=== PATIENT | female | born 1955 | race Caucasian/White ===

== ENCOUNTER 2017-04-27 13:54 | Outpatient (CLI) | payer OTHER ==
[2017-04-27 14:55] LABS: BASOPHILS # (AUTO) 0.1 K/uL (0.0-0.2); EOSINOPHILS # (AUTO) 0.2 K/uL (0.0-0.4); EOSINOPHILS % (AUTO) 2.7 % (0.0-4.0); HEMATOCRIT 45.8 % (36-48); HEMOGLOBIN 14.8 g/dL (12.0-16.0); LYMPHOCYTES # (AUTO) 1.5 K/uL (1.0-5.5); LYMPHOCYTES % (AUTO) 21.1 % (20.5-51.5); MEAN CORPUSCULAR HEMOGLOBIN 30 pg (27-31); MEAN CORPUSCULAR HGB CONC 32 % (32-36); MEAN CORPUSCULAR VOLUME 91 fL (79.0-98.0); MONOCYTES # (AUTO) 0.7 K/uL (0.0-1.0); NEUTROPHILS # (AUTO) 4.8 K/uL (1.8-7.7); NEUTROPHILS % (AUTO) 66.2 % (40.0-70.0); PLATELET COUNT (AUTO) 247 K/uL (130-430); RED BLOOD CELL COUNT(AUTO) 5.01 MIL/uL (4.2-6.2); RED CELL DISTRIBUTION WIDTH 13.3 % (9.0-15.0); WHITE BLOOD COUNT (AUTO) 7.3 K/uL (4.8-10.8)
[2017-04-27 14:58] LABS: CALCIUM 9.5 mg/dL (8.4-11.0); CREATININE 0.68 mg/dL (0.55-1.30)
[2017-04-27 15:06] LABS: INR 0.9 (0.8-1.2); PROTHROMBIN TIME 9.4 SECS (9.5-12.5)
== END 2017-04-27 19:48 | disposition home or self-care (01) ==
LOC: SLB 13:54
PROVIDERS: ATTEND Surgery Vascular Surgery
DX: I82.401 Acute embolism and thrombosis of unspecified deep veins of right lower extremity (principal); D68.51 Activated protein C resistance
CPT/HCPCS: 36415; 80048; 85025; 85610; 85730; C1751; C1769

== ENCOUNTER → 2017-04-30 | Outpatient (CLI) | payer OTHER ==
[2017-04-30 15:35] LABS: INR 1.1 (0.8-1.2); PROTHROMBIN TIME 12.2 SECS (9.5-12.5)
== END | disposition home or self-care (01) ==
LOC: SLB 14:27
PROVIDERS: ATTEND Surgery Vascular Surgery
DX: I82.401 Acute embolism and thrombosis of unspecified deep veins of right lower extremity (principal); D68.51 Activated protein C resistance
CPT/HCPCS: 36415; 85610-TC; 85730-TC

== ENCOUNTER 2017-05-03 08:24 | Outpatient (CLI) | payer OTHER ==
[2017-05-03 08:54] LABS: INR 2.2 (0.8-1.2); PROTHROMBIN TIME 24.8 SECS (9.5-12.5)
== END 2017-05-03 20:32 | disposition home or self-care (01) ==
LOC: SLB 08:24
PROVIDERS: ATTEND Surgery Vascular Surgery
DX: I82.401 Acute embolism and thrombosis of unspecified deep veins of right lower extremity (principal); D68.51 Activated protein C resistance
CPT/HCPCS: 36415; 85610-TC; 85730-TC

== ENCOUNTER 2022-12-11 10:59 | Emergency (ER) | payer OTHER, MEDICARE ==
[~2022-12-11] VITALS: Ht 162.6 cm; Wt 62.6 kg
[2022-12-11 11:29] VITALS: BP_SYST 141
[2022-12-11 14:48] LABS: BILIRUBIN,URINE NEGATIVE (NEGATIVE); BLOOD, URINE 2+ (NEGATIVE); COLOR,URINE YELLOW (YELLOW); GLUCOSE,URINE NEGATIVE (NEGATIVE); KETONES,URINE 3+ (NEGATIVE); LEUKOCYTE ESTERASE ,URINE 3+ (NEGATIVE); NITRITE, URINE NEGATIVE (NEGATIVE); PROTEIN URINE TRACE (NEGATIVE); UROBILINOGEN,URINE 0.2 (0.2-1.0)
[2022-12-11 15:05] LABS: CLARITY/URINE HAZY (CLEAR)
--- NOTE | 2022-12-11 15:09 | NUR ---
PT BIB FROM HOME C/O RT FLANK SHARP STABBING PAIN X5 DAYS THAT HAS PROGRESSED TO 10 OUT OF 10, DOES NOT RADIATE. PT RECOVERING FROM BLADDER INFECTION 12/01/22. PT STATES DIFFICULT TO URINATE DUE TO THE PAIN. PT TEMP 98.6 TEMPORAL. PT HISTORY OF DIABETES CONTROLLED WITH METFORMIN, FACTOR 5 LEIDON, ALPHA 1 ANTITRIPSE DEFFICIENCY. PT VSS WITH RAILS UP BEDSIDE RESTING COMFORTABLY
--- NOTE | 2022-12-11 15:10 | NUR ---
MD DR LAND AT BEDSIDE
[2022-12-11 15:12] LABS: BASOPHILS % (AUTO) 0.3 % (0.0-2.0); EOSINOPHILS % (AUTO) 0.1 % (0.0-4.0); HEMATOCRIT 40.1 % (36-48); HEMOGLOBIN 13.6 g/dL (12.0-16.0); LYMPHOCYTES # (AUTO) 1.1 K/uL (1.0-5.5); LYMPHOCYTES % (AUTO) 14.9 % (20.5-51.5); MEAN CORPUSCULAR HEMOGLOBIN 31 pg (27-31); MEAN CORPUSCULAR HGB CONC 34 % (32-36); MEAN CORPUSCULAR VOLUME 92 fL (79.0-98.0); MONOCYTES # (AUTO) 0.4 K/uL (0.0-1.0); MONOCYTES % (AUTO) 4.9 % (1.7-9.3); NEUTROPHILS # (AUTO) 6.1 K/uL (1.8-7.7); NEUTROPHILS % (AUTO) 79.8 % (40.0-70.0); PLATELET COUNT (AUTO) 283 K/uL (130-430); RED BLOOD CELL COUNT(AUTO) 4.34 MIL/uL (4.2-6.2); RED CELL DISTRIBUTION WIDTH 13.8 % (9.0-15.0); WHITE BLOOD COUNT (AUTO) 7.6 K/uL (4.8-10.8)
[2022-12-11 15:16] LABS: BACTERIA,URINE MODERATE /HPF (None Seen)
[2022-12-11 15:27] LABS: ALBUMIN 4.3 g/dL (3.4-4.8); CALCIUM 9.2 mg/dL (8.4-11.0); CREATININE 0.64 mg/dL (0.55-1.30); TOTAL BILIRUBIN 0.4 mg/dL (0.0-1.0)
[2022-12-11] MEDS ORDERED: cefTRIAXone 1 GM IVPB PREMIX 50 ML IV ONE (16:45)
[2022-12-11] MEDS ORDERED: KETOROLAC TROMETHAMINE 30 MG VIAL IVP ONE (17:30)
[2022-12-11] MEDS ORDERED: NAPR-690 PO (18:12)
[2022-12-11] MEDS ORDERED: CIPR500T5 PO (18:12)
[2022-12-11 18:22] VITALS: BP_SYST 141
--- NOTE | 2022-12-11 18:25 | NUR ---
ER at bedside examining patient.
[2022-12-11] MEDS ORDERED: MORPHINE 4 MG INJ. 4 MG/ML VIAL IVP ONE (18:30)
--- NOTE | 2022-12-11 18:41 | NUR ---
ADMINISTERED 4MG MORPHINE PER DR LAND. PT TOLERATED WELL VSS. PT RESTING WITH RAILS UP BEDSIDE
--- NOTE | 2022-12-11 19:02 | NUR ---
Patient given written and verbal discharge instructions and verbalizes understanding. ER MD discussed with patient the results and treatment provided. Patient in stable condition. ID arm band removed. IV catheter removed intact and dressing applied, no active bleeding. Rx of ciprofloxacin given. Patient educated on pain management and to follow up with PMD. Opportunity for questions provided and answered. Medication side effect fact sheet provided.
== END 2022-12-11 19:00 | disposition home or self-care (01) ==
LOC: SED 10:59
DX: N12 Tubulo-interstitial nephritis, not specified as acute or chronic (principal); R10.31 Right lower quadrant pain; R11.0 Nausea; E11.9 Type 2 diabetes mellitus without complications; I10 Essential (primary) hypertension; Z79.899 Other long term (current) drug therapy
CPT/HCPCS: 99285; 74176; 96374; 96375; 80053; 81000; 85025; 87040; 87086; 36415; 76376; J0696; J1885; J2270